=== PATIENT | male | born 1980 | race Asian ===

== ENCOUNTER 2018-11-22 21:04 | Emergency (ER) | payer OTHER ==
[~2018-11-22] VITALS: Ht 175.3 cm; Wt 81.8 kg
[2018-11-22 21:12] VITALS: Ht 175.3 cm; Wt 81.8 kg
[2018-11-22 21:15] VITALS: BP 117/79; PULSE 80; RESP 16
--- NOTE | 2018-11-22 21:40 | ERD ---
ER Documentation Chief Complaint Chief Complaint Near syncopal episode HPI The patient is a 37-year-old male, presenting to the ER from ICU because he had lightheadedness. He visited his very ill and to the ICU. He has been out for the last 18 hours and did not eat or drink much. He felt lightheadedness in the ICU and was able to lower him down to the floor. He denies syncope, headache, neck pain, chest pain, dyspnea, abdominal pain, vomiting, dizzy, diarrhea. He feels well and wants to go home. He does not smoke, drink Past medical history: Diabetes mellitus ROS All systems reviewed and are negative except as per history of present illness. PMhx/Soc History of Surgery: Yes (L retinal surgery) Anesthesia Reaction: No Hx Neurological Disorder: No Hx Respiratory Disorders: No Hx Cardiac Disorders: No Hx Psychiatric Problems: No Hx Miscellaneous Medical Probl: Yes (DM2) Hx Alcohol Use: Yes (Every now and then) Hx Substance Use: No Hx Tobacco Use: No Smoking Status: Never smoker Physical Exam Vitals Vital Signs Date Temp Pulse Resp B/P (MAP) Pulse Ox O2 O2 Flow FiO2 Time Delivery Rate 11/22/18 98.0 80 16 117/79 98 Room Air 21:15 (92) 11/22/18 98.0 80 16 117/79 98 21:12 (92) Physical Exam Const: No acute distress. Head: Atraumatic. Eyes: Normal Conjunctiva. ENT: Normal External Ears, Nose and Mouth. Neck: Full range of motion. No meningismus. Resp: Clear to auscultation bilaterally. Cardio: Regular rate and rhythm. Abd: Soft, non distended, normal bowel sounds, non tender. Skin: No petechiae or rashes. Back: No midline or flank tenderness. Ext: No cyanosis, or edema. Neur: Awake and alert. No focal deficit Psych: Normal Mood and Affect. Results 24 hrs Laboratory Tests Test 11/22/18 21:08 Bedside Glucose 156 mg/dL Procedures/[facility] EKG: Read by emergency physician Rate/Rhythm: Normal Sinus Rhythm 78 beats/min QRS, ST, T-waves: No ST elevation, no T inversion Impression: Normal EKG Accu-Chek is 156 MEDICAL MAKING DECISION: The patient is a 37-year-old male, presenting to the ER because of lightheadedness, most likely due to acute dehydration. He is without any symptoms and is able to take p.o. any difficulty, is stable for outpatient follow-up The differential diagnoses considered include but are not limited to dehydration, electrolyte imbalance, arrhythmia Departure Diagnosis: Primary Impression: Dehydration Condition: Good Comments I discussed the findings with the patient. I advised the patient to follow-up with the primary physician in about 2-3 days, sooner if needed and return if any concern. Disclaimer: Inadvertent spelling and grammatical errors are likely due to EHR/dictation software use and do not reflect on the overall quality of patient care. Also, please note that the electronic time recorded on this note does not necessarily reflect the actual time of the patient encounter. BRENT PEDRO MD Nov 22, 2018 21:40
== END 2018-11-22 22:00 | disposition home or self-care (01) ==
LOC: E/R 21:04
DX: E86.0 Dehydration (principal); E11.9 Type 2 diabetes mellitus without complications
CPT/HCPCS: 82962; 93005